=== PATIENT | male | born 1975 | race Hispanic/Latino ===

== ENCOUNTER 2023-01-25 19:23 | Emergency (ER) | payer OTHER ==
[~2023-01-25] VITALS: Ht 180.3 cm; Wt 88.9 kg
[2023-01-25 20:52] LABS: BASOPHILS % (AUTO) 0.5 % (0.0-5.0); EOSINOPHILS % (AUTO) 3.9 % (0.0-8.0); HEMATOCRIT 21.1 % (42-54); LYMPHOCYTES % (AUTO) 12.5 % (21.0-51.0); MEAN CORPUSCULAR HEMOGLOBIN 32.6 pg (27.0-33.0); MEAN CORPUSCULAR HGB CONC 33.2 g/dL (32.0-36.0); MEAN CORPUSCULAR VOLUME 98.1 fL (79-99); MONOCYTES % (AUTO) 10.9 % (3.0-13.0); NEUTROPHILS % (AUTO) 71.9 % (40.0-77.0); PLATELET COUNT (AUTO) 223 K/uL (130-400); RED BLOOD CELL COUNT(AUTO) 2.15 MIL/uL (4.50-6.20); RED CELL DISTRIBUTION WIDTH 13.6 % (11.0-15.5); WHITE BLOOD COUNT (AUTO) 9.3 K/uL (4.8-10.8)
[2023-01-25] MEDS ORDERED: NIFEDIPINE 10 MG CAP PO ONE (21:00)
[2023-01-25 21:07] LABS: POTASSIUM 3.5 mmol/L (3.5-5.1); TOTAL PROTEIN, SERUM 6.8 g/dL (6.0-8.3)
[2023-01-25 21:16] LABS: CREATININE 8.3 mg/dL (0.5-1.5)
[2023-01-25 21:39] VITALS: BP 116/62
== END 2023-01-25 21:54 | disposition home or self-care (01) ==
LOC: EDH 19:23
DX: I16.0 Hypertensive urgency (principal); I12.0 Hypertensive chronic kidney disease with stage 5 chronic kidney disease or end stage renal disease; N18.6 End stage renal disease; D63.1 Anemia in chronic kidney disease; E11.22 Type 2 diabetes mellitus with diabetic chronic kidney disease; E78.00 Pure hypercholesterolemia, unspecified; Z99.2 Dependence on renal dialysis; Z98.890 Other specified postprocedural states
CPT/HCPCS: 36415; 80053; 85025; 93005

== ENCOUNTER 2024-12-16 18:30 | Emergency (ER) | payer OTHER ==
[~2024-12-16] VITALS: Ht 180.3 cm; Wt 93.4 kg
--- NOTE | 2024-12-16 18:43 | ERN ---
ED Note History of Present Illness Stated Complaint: NECK PAIN Chief Complaint: Fever Time Seen by MD: 18:36 Dictation: PATIENT IS A 49-YEAR-OLD MALE COMING IN TODAY WITH NECK PAIN, FEVER CHILLS HE HAS HAD FOR 2-3 DAYS. NAUSEA WITHOUT VOMITING STATES HE HAS ALSO HAD A COUGH HOWEVER IT IS NONPRODUCTIVE HE HAS HEMODIALYSIS PTS, LAST HEMODIALYSIS WAS YESTERDAY AND WAS COMPLETED. STATES HE HAS CALLED HIS PRIMARY CARE DOCTOR ADVISED HIM TO COME IN ON THURSDAY BUT HE SAID HE FELL TO BAD Allergies: Coded Allergies: No Known Drug Allergies (Unverified Allergy, Unknown, 12/16/24) Past Medical History Past Medical History: Diabetes-Type II, High Cholesterol, Hypertension, Renal Failure Surgical History: Other Surgical History Other: A/V GRAFT Sary SÁNCHEZ RN Note Reviewed/Agreed w/PFSH: Yes Review of System Dictation CONSTITUTIONAL: NEGATIVE EXCEPT FOR HPI FEVER CHILLS HEAD/FACE: NEGATIVE EXCEPT FOR HPI EENT: NEGATIVE EXCEPT FOR HPI RESPIRATORY: NEGATIVE EXCEPT FOR HPI COUGH GASTROINTESTINAL/ABDOMINAL: NEGATIVE EXCEPT FOR HPI GENITOURINARY: NEGATIVE EXCEPT FOR HPI MUSCULOSKELETAL: NEGATIVE EXCEPT FOR HPI INTEGUMENTARY: NEGATIVE EXCEPT FOR HPI NEUROLOGICAL/PSYCH: NEGATIVE EXCEPT FOR HPI HEMATOLOGIC/LYMPHATIC: NEGATIVE EXCEPT FOR HPI ALL SYSTEMS NEGATIVE, EXCEPT NOTED ABOVE. 13 POINT REVIEW OF SYSTEMS ASSESSED AND ALL NEGATIVE EXCEPT FOR ABOVE. Initial Vital Sign VS Vital Signs Date Time Temp Pulse Resp B/P (MAP) Pulse Ox O2 Delivery O2 Flow Rate FiO2 12/16/24 18:36 101.3 88 18 192/83 97 Room Air Physical Exam Dictation VITAL SIGNS REVIEWED GENERAL APPEARANCE: ALERT, ORIENTED X 3, NO ACUTE DISTRESS, WELL DEVELOPED, NOURISHED. HEAD AND FACE: NON-TRAUMATIC. EYES: PERRL, PINK CONJUNCTIVAS, EYELID NO TRAUMA, ANTERIOR CHAMBER WITH ARCUS SENILIS. EARS: PINNAS INTACT AND NO SIGNS OF TRAUMA OR ERYTHEMA EAR CANALS CLEAR AND NO DISCHARGE TM NO ERYTHEMA NOSE: NO DISCHARGE, NO BLEEDING. OROPHARYNX: MOUTH NORMAL, TONGUE PINK, PHARYNX CLEAR,NO ERYTHEMA, TONSILS NO EXUDATES, NO ABSCESSES NOTED, MUCOUS MEMBRANE MOIST NECK: SUPPLE, NON-TENDER, NO THYROMEGALY, NO MASSES, NO JVD, NO BRUITS BREAST:DEFERRED CHEST:NO TENDERNESS, NO CREPITUS, NO PARADOXICAL MOVEMENT, NO RETRACTIONS LUNGS:CLEAR, WELL-VENTILATED, SYMMETRIC, NO RALES, NO WHEEZING, NO RHONCHI, NO STRIDOR, GOOD BREATH SOUNDS BILATERALLY HEART: REGULAR RATE, REGULAR RHYTHM, NO MURMUR, NO GALLOPS VASCULAR: NO PERIPHERAL EDEMA, LEFT ARM FISTULA WITH GOOD THRILL AND BRUIT ABDOMEN: SOFT, POSITIVE BOWEL SOUNDS, NONDISTENDED, NO GUARDING, NONTENDER, NO REBOUND, NO MASSES NO HEPATOMEGALY, NO SPLENOMEGALY, NO PERALTA'S SIGN, NO HERNIAS. RECTAL: DEFERRED GENITAL: DEFERRED NEUROLOGICAL: NORMAL SPEECH, MOTOR FUNCTION INTACT, SENSORY FUNCTION INTACT MUSCULOSKELETAL: NECK NONTENDER, FULL RANGE OF MOTION, BACK NONTENDER, FULL RANGE OF MOTION, EXTREMITIES: NONTENDER, FULL RANGE OF MOTION SKIN: COLOR PINK, DRY, NO TURGOR, NO RASH, NO LACERATIONS, NO ABRASIONS, NO CONTUSIONS. LYMPHATIC: DEFERRED Results (Laboratory/Radiology) Laboratory/Radiology Laboratory Tests Test 12/16/24 18:51 12/16/24 18:53 White Blood Count 8.6 K/uL (4.8-10.8) Red Blood Count 2.18 MIL/uL (4.50-6.20) L Hemoglobin 6.9 g/dL (14.0-18.0) *L Hematocrit 21.3 % (42-54) L Mean Corpuscular Volume 97.7 fL (79-99) Mean Corpuscular Hemoglobin 31.7 pg (27.0-33.0) Mean Corpuscular Hemoglobin Concent 32.4 g/dL (32.0-36.0) Red Cell Distribution Width 13.3 % (11.0-15.5) Platelet Count 175 K/uL (130-400) Mean Platelet Volume 10.2 fL (7.5-10.5) Immature Granulocyte % (Auto) 0.5 % (0-1) Neutrophils (%) (Auto) 87.7 % (40.0-77.0) H Lymphocytes (%) (Auto) 4.4 % (21.0-51.0) L Monocytes (%) (Auto) 7.1 % (3.0-13.0) Eosinophils (%) (Auto) 0.1 % (0.0-8.0) Basophils (%) (Auto) 0.2 % (0.0-5.0) Neutrophils # (Auto) 7.6 K/uL (1.8-7.7) Lymphocytes # (Auto) 0.4 K/uL (1.0-4.8) L Monocytes # (Auto) 0.6 K/uL (0.1-1.0) Eosinophils # (Auto) 0.01 K/uL (0.00-0.70) Basophils # (Auto) 0.02 K/uL (0.00-0.20) Absolute Immature Granulocyte (auto 0.04 K/uL (0-1) Nucleated Red Blood Cells 0.0 % (0.0-0.19) White Cell Morphology Comment See comments Sodium Level 135 mmol/L (136-145) L Potassium Level 4.2 mmol/L (3.5-5.1) Chloride Level 94 mmol/L (101-111) L Carbon Dioxide Level 34 mmol/L (21-32) H Blood Urea Nitrogen 41 mg/dL (7-18) H Creatinine 9.6 mg/dL (0.5-1.3) *H Glomerular Filtration Rate Calc 6 mL/min (>90) Random Glucose 139 mg/dL (70-105) H Lactic Acid Level 2.2 mmol/L (0.8-2.5) Total Calcium 8.6 mg/dL (8.5-10.1) Influenza Type A Antigen Negative For Type A Influenza Type B Antigen Negative For Type B SARS-CoV-2, RNA, NAAT NEGATIVE SARS CoV-2 Group A Streptococcus Rapid positive (NEGATIVE) *A CHEST 1VW CLINICAL HISTORY: COUGH COMPARISON: None TECHNIQUE: Single view of the chest was obtained. FINDINGS: Lungs are clear. The cardiac size and mediastinum are unremarkable. The bony structures are within normal limits. IMPRESSION: No acute cardiopulmonary process identified. Labs Reviewed?: Yes ED Course ED Course Orders Procedure Category Date Status Time Influenza Type A & B, LAB 12/16/24 Complete Rapid 18:35 Covid Rna Naat LAB 12/16/24 Complete 18:35 Rapid (Group A Strep) LAB 12/16/24 Complete 18:35 Blood Cult SYLVESTER 12/16/24 In Process 18:38 Lactic Acid LAB 12/16/24 Complete 18:38 Cbc With Differential LAB 12/16/24 Complete 18:38 12 Lead Ekg Tracing- EKG 12/16/24 Logged Technical 18:38 Chest 1vw RAD 12/16/24 Resulted 18:38 Basic Metabolic Panel LAB 12/16/24 Complete 18:38 Acetaminophen 500mg PHA 12/16/24 Complete Tab (Tylenol 500mg T 19:00 Acetaminophen With PHA 12/16/24 Verified Codeine (Tylenol-Code 21:00 Ceftriaxone 1g Vial PHA 12/16/24 Verified (Rocephine 1g Inj) 21:00 Current Medications Medications (Trade) Dose Ordered Sig/Felipe Route PRN Reason Start Time Stop Time Status Last Admin Dose Admin Acetaminophen (TYLenol 500MG TAB) 1,000 mg ONCE ONCE PO 12/16/24 19:00 12/16/24 19:01 DC 12/16/24 18:44 Vital Signs Date Time Temp Pulse Resp B/P (MAP) Pulse Ox O2 Delivery O2 Flow Rate FiO2 12/16/24 18:36 101.3 88 18 192/83 97 Room Air 2049/DISCUSSED PATIENT'S LABS FINDING AT LENGTH TO INCLUDE STREP THROAT AND ANEMIA OF 6.9. I ADVISED HIM I WOULD LIKE TO PLACE HIM IN THE HOSPITAL HOWEVER HE SAID HE DID NOT WANT TO STAY THAT [facility] WAS HIS HOSPITAL OF CHOICE AND HE CAME HERE BECAUSE HE COULD NOT GET TO [facility] DUE TO THE RAIN. HE SAID HE WANTS ME TO TREAT HIM FOR STREP THROAT AND GIVE HIM CLEARANCE SAID THERE IS NO FLU OR COVID AND HE GO TO DIALYSIS TOMORROW AND WE WILL GO SEE HIS DOCTOR. AGAIN I ADVISED HIM I WOULD LIKE TO KEEP HIM IN THE HOSPITAL PATIENT REFUSED. Medical Decision Making MDM MDM: DIFFERENTIAL DIAGNOSIS: FLU/COVID/STREP/PNEUMONIA/BRONCHITIS/VIRAL SYNDROME RATIONALE: TESTS CONSIDERED AND ORDERED SECONDARY TO SHARED DECISION MAKING INCLUDE: EKG/LABS/RADIOLOGY PREVIOUS OUTSIDE RECORDS REVIEWED: OLD ER VISITS. RISK OF COMPLICATION AND/OR MORBIDITY OR MORTALITY OF PATIENT MANAGEMENT: MILD MEDICATIONS-PER MEDICATION RECONCILIATION NEED FOR HOSPITALIZATION: PATIENT DOES NOT MEET CRITERIA FOR HOSPITALIZATION. PATIENT REFUSES ADMISSION THAT THIS TIME. NEED FOR EMERGENCY MAJOR/MINOR SURGERY: NO THERE ARE NO SOCIAL CONCERNS WITH THIS PATIENT. PRESCRIPTION DRUG MANAGEMENT AUGMENTIN PRESCRIPTIONS WILL INCLUDE SYMPTOMATIC CARE PATIENT'S PRIOR EXTERNAL MEDICAL RECORDS FROM OTHER ER VISITS WERE REVIEWED BY ME INDICATED. PRIOR TESTING AND RESULTS FROM PREVIOUS VISITS WERE REVIEWED. PRIOR TESTS WERE TAKEN INTO ACCOUNT WITH MEDICAL DECISION MAKING AND RESOURCE UTILIZATION, INDEPENDENT HISTORIAN/HISTORIANS WERE USED TO OBTAIN COMPLETE MEDICAL HISTORY. I INDEPENDENTLY INTERPRETED THE TEST THAT WERE PERFORMED, RESULTS WERE REVIEWED BY ME AND CONSIDERED FINDINGS ON RADIOLOGY IF ORDERED. MEDICAL MANAGEMENT AND EXAMINATION INTERPRETATION DISCUSSIONS WERE HAD BY ME WITH OTHER QUALIFIED HEALTHCARE PROFESSIONALS INDICATED FOR THE PATIENT'S CARE. DX & DISP Disposition: Discharge Departure Impression: Primary Impression: Acute streptococcal pharyngitis Additional Impressions: Fever, Anemia secondary to renal failure Condition: Stable Scripts Acetaminophen with Codeine (Acetaminophen-Cod #3 Tablet) 300 Mg-30 Mg Tablet 1 TAB PO Q4H PRN for MODERATE TO SEVERE PAIN, #10 TAB 0 Refills Prov: LUIS YA NP 12/16/24 Amoxicillin/Potassium Clav (Amox Tr-K Clv 875-125 mg Tab) 875 Mg-125 Mg Tablet 1 EACH PO BID for 7 Days, #14 TAB 0 Refills Prov: LUIS YA NP 12/16/24 Additional Instructions: Follow-up with primary care provider in 1 to 2 days. Take medications as directed here in the emergency room. Okay to continue home medications unless otherwise discussed during your visit in the emergency room today. Return to your nearest emergency room if symptoms worsen or if there is no improvement. Call 911 if you need immediate assistance. Take Tylenol or Motrin [id number] as needed and if no contraindications are present. Increase oral hydration. A wound culture or urine culture was ordered here in the emergency room department please follow-up with primary care provider and advise them to get repeat ports from our facility. If you had any James wrap/splints that were applied here, please do not remove them until you see your primary care or specialty. Take antibiotics as directed until gone, take Tylenol [id number] as needed for fever. Patient is medically cleared to go to hemodialysis 12/17/2024, he does NOT HAVE SARS COVID OR INFLUENZA. DIAGNOSIS OF STREPTOCOCCAL TONSILLITIS Referrals: KIM BORJA LCSW (PCP) Time of Disposition: 20:54 I have reviewed the case, and I agree with, Diagnosis and Plan LUIS YA NP Dec 16, 2024 18:43
[2024-12-16] MEDS: acetaMINOPHEN 500 MG TABLET PO ONE (18:44)
[2024-12-16 19:32] LABS: SARS-CoV-2, RNA, NAAT NEGATIVE SARS CoV-2 (NEGATIVE)
[2024-12-16 19:43] LABS: INFLUENZA TYPE A Negative For Type A (NEGATIVE); INFLUENZA TYPE B Negative For Type B (NEGATIVE)
[2024-12-16 19:44] LABS: POTASSIUM 4.2 mmol/L (3.5-5.1)
[2024-12-16 19:46] LABS: CREATININE 9.6 mg/dL (0.5-1.3)
[2024-12-16 19:49] LABS: BASOPHILS # (AUTO) 0.02 K/uL (0.00-0.20); BASOPHILS % (AUTO) 0.2 % (0.0-5.0); EOSINOPHILS # (AUTO) 0.01 K/uL (0.00-0.70); EOSINOPHILS % (AUTO) 0.1 % (0.0-8.0); HEMATOCRIT 21.3 % (42-54); IMMATURE GRANULOCYTE ABSOLUTE 0.04 K/uL (0-1); LYMPHOCYTES # (AUTO) 0.4 K/uL (1.0-4.8); LYMPHOCYTES % (AUTO) 4.4 % (21.0-51.0); MEAN CORPUSCULAR HEMOGLOBIN 31.7 pg (27.0-33.0); MEAN CORPUSCULAR HGB CONC 32.4 g/dL (32.0-36.0); MEAN CORPUSCULAR VOLUME 97.7 fL (79-99); MONOCYTES # (AUTO) 0.6 K/uL (0.1-1.0); MONOCYTES % (AUTO) 7.1 % (3.0-13.0); NEUTROPHILS # (AUTO) 7.6 K/uL (1.8-7.7); NEUTROPHILS % (AUTO) 87.7 % (40.0-77.0); PLATELET COUNT (AUTO) 175 K/uL (130-400); RED BLOOD CELL COUNT(AUTO) 2.18 MIL/uL (4.50-6.20); RED CELL DISTRIBUTION WIDTH 13.3 % (11.0-15.5); WHITE BLOOD COUNT (AUTO) 8.6 K/uL (4.8-10.8)
--- NOTE | 2024-12-16 19:55 | HMCIMG ---
CHEST 1VW CLINICAL HISTORY: COUGH COMPARISON: None TECHNIQUE: Single view of the chest was obtained. FINDINGS: Lungs are clear. The cardiac size and mediastinum are unremarkable. The bony structures are within normal limits. IMPRESSION: No acute cardiopulmonary process identified.
[2024-12-16 20:02] LABS: RAPID GROUP A STREP positive (NEGATIVE)
[2024-12-16] MEDS ORDERED: ACET-2079 PO (20:55)
[2024-12-16] MEDS ORDERED: AMOX1TAB16 PO (20:55)
[2024-12-16 21:26] VITALS: BP 142/60; PULSE 74; RESP 18; TEMP 98.2; O2SAT 97
[2024-12-16] MEDS: cefTRIAXone 1G VIAL IM ONE (21:31)
[2024-12-16] MEDS: acetaMINOPHEN WITH coDEINE 1 TAB TAB PO ONE (21:31)
--- NOTE | 2024-12-17 09:04 | EKG ---
[facility] Test Date: 2024-12-16 Test Time: 18:47:00 Pat Name: STU ESPINOSA Department: ED Room: Gender: M [employer]: [birth year] : 1975 Requested By: LUIS YA Order Number: [id number] Reading MD: [place] Measurements Intervals [place] Rate: 84 P: 28 HI: 158 QRS: 12 QRSD: 82 T: 98 QT: 373 QTc: 442 Interpretive Statements Sinus rhythm Borderline ST elevation, anterior leads possibly early repolarization, repeat tracing if clinically indicated Compared to ECG 01/25/2023 20:41:55 Left ventricular hypertrophy no longer present ST (T wave) deviation still present Electronically Signed On 12-17-2024 15:59:55 CDT by [place] Please click the below link to view image of tracing.
[2024-12-19] MEDS ORDERED: SEVE800PW PO (18:29)
[2024-12-19] MEDS ORDERED: SUCR500T PO (18:32)
== END 2024-12-16 21:33 | disposition home or self-care (01) ==
LOC: EDH 18:30
DX: J02.0 Streptococcal pharyngitis (principal); I12.9 Hypertensive chronic kidney disease with stage 1 through stage 4 chronic kidney disease, or unspecified chronic kidney disease; E11.22 Type 2 diabetes mellitus with diabetic chronic kidney disease; N18.9 Chronic kidney disease, unspecified; D63.1 Anemia in chronic kidney disease; E78.00 Pure hypercholesterolemia, unspecified; Z20.822 Contact with and (suspected) exposure to COVID-19; Z98.890 Other specified postprocedural states
CPT/HCPCS: 99285; 71045; 87635; 80048; 85025; 87040 ×2; 87086; 87186; 87880; 87804 ×2; 83605; 36415; 96372; 93005; J0696

== ENCOUNTER → 2025-01-13 | Outpatient (CLI) | payer OTHER ==
[~2025-01-13] MED LIST: ACET-2079 PO; SEVE800PW PO; SUCR500T PO
--- NOTE | 2025-01-13 15:31 | HMCIMG ---
Exam Type: CERV SPINE 2-3VWS Clinical Information: Other specified dorsopathies, cervical region Comparison: None Findings: The C5 disc is partially collapsed and there is partial collapse of the inferior anterior endplate of C5 with resultant marked kyphosis at this level. There is secondary straightening of the cervical spine consistent with spasm. No acute fractures or dislocations are seen and there are levels are present. IMPRESSION: Severe disc degeneration and partial endplate collapse at C5-6. Underlying discitis cannot be excluded.
== END | disposition home or self-care (01) ==
LOC: RAH 14:34
PROVIDERS: ATTEND Internal Medicine Nephrology
DX: M53.82 Other specified dorsopathies, cervical region (principal); M50.322 Other cervical disc degeneration at C5-C6 level
CPT/HCPCS: 72040